=== PATIENT | female | born 1960 | race Caucasian/White ===

== ENCOUNTER → 2020-02-27 | Outpatient (CLI) | payer BC | END | disposition home or self-care (01) | LOC: CFH 12:09 | PROVIDERS: ATTEND Obstetrics & Gynecology | DX: Z12.39 Encounter for other screening for malignant neoplasm of breast (principal); R92.2 Inconclusive mammogram; Z98.82 Breast implant status | CPT/HCPCS: 76641; 77063; 77067 ==